=== PATIENT | male | born 1970 | race Caucasian/White ===

== ENCOUNTER 2021-10-29 14:31 | Outpatient (CLI) | payer OTHER ==
[~2021-10-29 14:31] MED LIST: Magnevist 469MG/ML 20 ML VIAL ONE
== END 2021-10-29 14:32 | disposition home or self-care (01) ==
LOC: CSHMRI 14:31
PROVIDERS: ATTEND Family Medicine
DX: G93.9 Disorder of brain, unspecified (principal); G44.52 New daily persistent headache (NDPH); G93.6 Cerebral edema
CPT/HCPCS: 70553; A9579

== ENCOUNTER 2021-11-06 07:09 | Outpatient (CLI) | payer OTHER ==
[2021-11-06] MEDS ORDERED: Iopamidol 370 76% 100 ML VIAL ONE (12:27)
== END 2021-11-06 07:10 | disposition home or self-care (01) ==
LOC: CSHCT 07:09
PROVIDERS: ATTEND Family Medicine
DX: D32.9 Benign neoplasm of meninges, unspecified (principal); D32.0 Benign neoplasm of cerebral meninges
CPT/HCPCS: 70496

== ENCOUNTER 2021-11-06 14:23 | Emergency (ER) | payer OTHER ==
[2021-11-06] MEDS ORDERED: diphenhydrAMINE 50 MG/ML VIAL ONE (14:55)
[2021-11-06] MEDS ORDERED: Metoclopramide HCl 10 MG/2 ML VIAL ONE (14:55)
[2021-11-06 15:10] LABS: #Eosinphils 0.1 10x3/uL (0.0-0.5); #Monocytes 0.9 10x3/uL (0.0-1.1); #Neutrophils 8.7 10x3/uL (1.5-8.4); %Basophils 0.3 % (0.0-2.0); %Lymphocytes 14.7 % (18.0-47.0); %Monocytes 7.7 % (0.0-10.0); %Neutrophils 75.8 % (40.0-75.0); Hemoglobin 14.3 g/dL (13.5-17.5); Mean Corpuscular HGB CONC 36.5 g/dL (32.0-36.0); Mean Corpuscular Volume 90.5 fl (81.2-95.1); Mean Platelet Volume 8.4 fl (7.4-10.4); Platelet Count 296 10x3/uL (150-450); RBC Distribution Width 11.9 % (11.5-14.5); Red Blood Cell (RBC) Count 4.33 10x6/uL (4.32-5.72); White Blood Cell (WBC) Count 11.5 10x3/uL (3.5-10.5)
[2021-11-06 15:26] LABS: ALT (SGPT) 23 U/L (8-55); AST (SGOT) 15 U/L (5-34); Alkaline Phosphatase 66 U/L (40-110); Anion Gap 14 mmol/L (10-20); BUN (Urea Nitrogen) 18 mg/dL (8.4-25.7); Bilirubin, Total 0.3 mg/dL (0.2-1.2); Calc. Creatinine Clearance 0 mL/min (70-130); Calcium 9.2 mg/dL (7.8-10.44); Carbon Dioxide 26 mmol/L (22-29); Chloride 107 mmol/L (98-107); Estimated GFR 65; Globulin 2.6 g/dL (2.4-3.5); Glucose 129 mg/dL (70-105); Potassium 4.1 mmol/L (3.5-5.1); Protein, Total 6.6 g/dL (6.0-8.3); Sodium 143 mmol/L (136-145)
[2021-11-06] MEDS ORDERED: Colchicine 0.6 MG TAB ONE (16:14)
[2021-11-06] MEDS ORDERED: Morphine 4 MG/ML VIAL ONE (16:15)
== END 2021-11-06 16:30 | disposition home or self-care (01) ==
LOC: CSHERS 14:23
DX: M79.674 Pain in right toe(s) (principal); R51.9 Headache, unspecified; I10 Essential (primary) hypertension; F17.290 Nicotine dependence, other tobacco product, uncomplicated
CPT/HCPCS: 80053; 85025; 94760; 96374; 96375; J1200; J2270; J2765

== ENCOUNTER 2021-11-17 07:37 | Emergency (ER) | payer OTHER ==
[2021-11-17] MEDS ORDERED: Metoclopramide HCl 10 MG/2 ML VIAL ONE (08:12)
[2021-11-17] MEDS ORDERED: diphenhydrAMINE 50 MG/ML VIAL ONE (08:12)
[2021-11-17] MEDS ORDERED: Ketorolac Tromethamine 30 MG/ML VIAL ONE (08:13)
== END 2021-11-17 10:00 | disposition home or self-care (01) ==
LOC: CSHERS 07:37
DX: R51.9 Headache, unspecified (principal); F17.290 Nicotine dependence, other tobacco product, uncomplicated; I10 Essential (primary) hypertension
CPT/HCPCS: 96361; 96365; 96375; J1200; J1885; J2765

== ENCOUNTER 2024-05-10 14:18 | Observation (INO) | payer OTHER, SELFPAY ==
[~2024-05-10 14:18] MED LIST changes: +Iopamidol 300 61% 100 ML VIAL FS ONE; -Magnevist 469MG/ML 20 ML VIAL ONE
[2024-05-10 15:14] LABS: #Basophils 0.04 10x3/uL (0.0-0.2); #Eosinophils Less than 0.03 10x3/uL (0.0-0.5); #Monocytes 1.49 10x3/uL (0.0-1.1); #Neutrophils 13.21 10x3/uL (1.5-8.4); %Basophils 0.3 % (0.0-2.0); %Lymphocytes 5.3 % (18.0-47.0); %Monocytes 9.5 % (0.0-10.0); %Neutrophils 84.3 % (40.0-75.0); Hematocrit 38.6 % (38.8-50.0); Hemoglobin 13.5 g/dL (13.5-17.5); Mean Corpuscular Hemoglobin 31.7 pg (27.0-33.0); Mean Corpuscular Volume 90.6 fL (81.2-95.1); Mean Platelet Volume 8.6 fL (7.4-10.4); Platelet Count 242 10x3/uL (150-450); RBC Distribution Width 12.5 % (11.5-14.5); Red Blood Cell (RBC) Count 4.26 10x6/uL (4.32-5.72); White Blood Cell (WBC) Count 15.67 10x3/uL (3.5-10.5)
[2024-05-10] MEDS ORDERED: Ketorolac Tromethamine 30 MG (1 mL) VIAL ONE (15:24)
[2024-05-10 15:37] LABS: ALT (SGPT) 10 U/L (Less than 45); AST (SGOT) 15 U/L (11-34); Albumin 3.6 g/dL (3.1-4.5); Alkaline Phosphatase 56 U/L (40-110); Anion Gap 13 mmol/L (10-20); BUN (Urea Nitrogen) 11 mg/dL (8.4-25.7); Calc. Creatinine Clearance 0 mL/min (70-130); Calcium 9.2 mg/dL (7.8-10.44); Carbon Dioxide 24 mmol/L (22-29); Chloride 99 mmol/L (98-107); Estimated GFR 76; Globulin 3.2 g/dL (2.4-3.5); Glucose 129 mg/dL (70-105); Lipase 12 U/L (8-78); Magnesium 1.6 mg/dL (1.6-2.6); Potassium 3.8 mmol/L (3.5-5.1); Protein, Total 6.8 g/dL (6.0-8.3); Sodium 132 mmol/L (136-145)
[2024-05-10] MEDS ORDERED: Piperacillin/Tazobactam 4.5 GM VIAL ONE (16:29)
[2024-05-10 17:03] LABS: Bilirubin Neg (Negative); Blood, Urine Negative (Negative); Clarity Clear (Clear); Glucose, Urine (Dipstick) Normal (Negative); Ketone, Urine 15 mg/dL (Negative); Leukocyte Negative (Negative); Nitrite Negative (Negative); Protein, Urine (Dipstick) Negative (Neg-Trace); Urobilinogen Normal mg/dL (Less than 2)
[2024-05-10] MEDS ORDERED: hydrALAZINE 20 MG/ML VIAL SLOW IVP PRN (17:20)
[2024-05-10] MEDS ORDERED: Ondansetron PF 4 MG/2 ML Vial IVP PRN (17:20)
[2024-05-10] MEDS ORDERED: Morphine 4 MG/ML VIAL SLOW IVP PRN (17:20)
[2024-05-10] MEDS ORDERED: Morphine 2 MG/ML VIAL SLOW IVP PRN (17:20)
[2024-05-10] MEDS ORDERED: Promethazine HCl 25 MG/ML VIAL IM PRN (17:20)
[2024-05-10] MEDS ORDERED: Ipratropium/Albuterol 3 ML NEB NEB PRN (17:20)
[2024-05-10 18:10] LABS: Bacteria/HPF None Seen HPF (None Seen); CAUTI Indications for Culture Pelvic or flank pain; RBC/HPF None Seen HPF (0-3); Squamous Epithelial None Seen HPF (0-3); Urine Culture Reflex No No; WBC/HPF None Seen HPF (0-3)
[2024-05-10] MEDS ORDERED: Morphine 4 MG/ML VIAL ONE (20:46)
[2024-05-10] MEDS: Lactated Ringer's 1,000 ML IV SCH (22:42)
[2024-05-10] MEDS: Famotidine/PF 20 mg/2ml Vial SLOW IVP SCH (22:43)
[2024-05-10] MEDS: Enoxaparin 40 MG (0.4 mL) SYRINGE SC SCH (22:43)
[2024-05-10 22:53] VITALS: BMI 32.3
[2024-05-10] MEDS: Ketorolac Tromethamine 30 MG (1 mL) VIAL IVP SCH (23:18)
[2024-05-11] MEDS ORDERED: Piperacillin/Tazobactam 4.5 GM in Sodium Chloride 0.9% 100 ML IVPB SCH (00:30)
[2024-05-11] MEDS: Piperacillin/Tazobactam 3.375 GM in Sodium Chloride 0.9% 100 ML IVPB SCH (00:32)
[2024-05-11 03:51] LABS: #Basophils Less than 0.03 10x3/uL (0.0-0.2); #Eosinophils 0.12 10x3/uL (0.0-0.5); #Monocytes 1.35 10x3/uL (0.0-1.1); #Neutrophils 7.82 10x3/uL (1.5-8.4); %Basophils 0.2 % (0.0-2.0); %Eosinophils 1.1 % (0.0-6.0); %Lymphocytes 11.4 % (18.0-47.0); %Monocytes 12.8 % (0.0-10.0); %Neutrophils 74.1 % (40.0-75.0); Hematocrit 33.3 % (38.8-50.0); Hemoglobin 12.1 g/dL (13.5-17.5); Mean Corpuscular HGB CONC 36.3 g/dL (32.0-36.0); Mean Corpuscular Hemoglobin 33.3 pg (27.0-33.0); Mean Corpuscular Volume 91.7 fL (81.2-95.1); Mean Platelet Volume 8.7 fL (7.4-10.4); Platelet Count 185 10x3/uL (150-450); RBC Distribution Width 12.8 % (11.5-14.5); Red Blood Cell (RBC) Count 3.63 10x6/uL (4.32-5.72); White Blood Cell (WBC) Count 10.55 10x3/uL (3.5-10.5)
[2024-05-11 04:06] LABS: Anion Gap 11 mmol/L (10-20); BUN (Urea Nitrogen) 14 mg/dL (8.4-25.7); Calc. Creatinine Clearance 107 mL/min (70-130); Calcium 8.3 mg/dL (7.8-10.44); Carbon Dioxide 25 mmol/L (22-29); Chloride 99 mmol/L (98-107); Estimated GFR 67; Glucose 133 mg/dL (70-105); Potassium 3.2 mmol/L (3.5-5.1); Sodium 132 mmol/L (136-145)
[2024-05-11 08:39] VITALS: BP 115/69; TEMP 98.3
[2024-05-11] MEDS: Tamsulosin HCl 0.4 MG CAP PO SCH (09:13)
[2024-05-11] MEDS: Lisinopril 20 MG TAB PO SCH (09:13)
[2024-05-11] MEDS: Allopurinol 100 MG TAB PO SCH (09:13)
[2024-05-11] MEDS: Hydrochlorothiazide 25 MG TAB PO SCH (09:13)
[2024-05-11] MEDS: Amlodipine 5 MG TAB PO SCH (09:13)
== END 2024-05-11 09:29 | disposition home or self-care (01) ==
LOC: CSHERS 14:18 → CSHTELE 16:02
PROVIDERS: ADMIT Surgery; ATTEND Surgery
DX: K36 Other appendicitis (principal); I10 Essential (primary) hypertension; M10.9 Gout, unspecified; M19.90 Unspecified osteoarthritis, unspecified site; F32.A Depression, unspecified; N40.0 Benign prostatic hyperplasia without lower urinary tract symptoms; Z98.890 Other specified postprocedural states; Z79.899 Other long term (current) drug therapy
CPT/HCPCS: 36415; 74177; 80048; 80053; 81001; 83690; 83735; 85025; 96365; 96366; 96372; 96375; 96376; G0378; J1650; J1885; J2270; J2543; J3490; J7120; Q9967

== ENCOUNTER 2025-01-28 07:17 | Emergency (ER) | payer OTHER ==
[2025-01-28] MEDS ORDERED: Ondansetron PF 4 MG/2 ML Vial ONE (07:40)
[2025-01-28 08:09] LABS: ALT (SGPT) 18 U/L (Less than 45); AST (SGOT) 31 U/L (11-34); Albumin 3.3 g/dL (3.1-4.5); Alkaline Phosphatase 60 U/L (40-110); Anion Gap 17 mmol/L (10-20); BUN (Urea Nitrogen) 17 mg/dL (8.4-25.7); Bilirubin, Total 1.2 mg/dL (0.3-1.2); Calc. Creatinine Clearance 0 mL/min (70-130); Calcium 8.5 mg/dL (7.8-10.44); Carbon Dioxide 21 mmol/L (22-29); Chloride 95 mmol/L (98-107); Globulin 2.6 g/dL (2.4-3.5); Glucose 116 mg/dL (70-105); Lipase 58 U/L (8-78); Magnesium 1.7 mg/dL (1.6-2.6); Potassium 4.0 mmol/L (3.5-5.1); Sodium 129 mmol/L (136-145)
[2025-01-28 08:15] LABS: Troponin I Less than 0.010 ng/mL (< 0.028)
[2025-01-28 08:23] LABS: Hematocrit 35.0 % (38.8-50.0); Hemoglobin 13.4 g/dL (13.5-17.5); Mean Corpuscular Hemoglobin 37.2 pg (27.0-33.0); Mean Corpuscular Volume 97.2 fL (81.2-95.1); Platelet Count 177 10x3/uL (150-450); Red Blood Cell (RBC) Count 3.60 10x6/uL (4.32-5.72); White Blood Cell (WBC) Count 5.11 10x3/uL (3.5-10.5)
[2025-01-28 08:24] LABS: #Basophils Less than 0.03 10x3/uL (0.0-0.2); #Eosinophils 0.03 10x3/uL (0.0-0.5); #Monocytes 0.46 10x3/uL (0.0-1.1); #Neutrophils 3.13 10x3/uL (1.5-8.4); %Basophils 0.4 % (0.0-2.0); %Eosinophils 0.6 % (0.0-6.0); %Lymphocytes 27.8 % (18.0-47.0); %Monocytes 9.0 % (0.0-10.0); %Neutrophils 61.2 % (40.0-75.0); INR-International Normal Ratio 1.0; PTT 26.9 sec (22.0-33.0); Prothrombin Time 10.8 sec (9.5-12.1)
== END 2025-01-28 10:40 | disposition home or self-care (01) ==
LOC: CSHERS 07:17
DX: E86.0 Dehydration (principal); E87.1 Hypo-osmolality and hyponatremia; R29.700 NIHSS score 0; I10 Essential (primary) hypertension; F17.290 Nicotine dependence, other tobacco product, uncomplicated; Z79.899 Other long term (current) drug therapy
CPT/HCPCS: 36415; 70450; 71045; 72125; 76705; 80053; 83605; 83690; 83735; 83880; 84484; 85025; 85610; 85730; 87428; 93005; 94640; 96361; 96374; 96375; J2919

== ENCOUNTER 2025-02-09 16:46 | Emergency (ER) | payer OTHER ==
[2025-02-09 20:23] LABS: ALT (SGPT) 20 U/L (Less than 45); AST (SGOT) 25 U/L (11-34); Albumin 3.8 g/dL (3.1-4.5); Alkaline Phosphatase 72 U/L (40-110); Anion Gap 15 mmol/L (10-20); BUN (Urea Nitrogen) 8 mg/dL (8.4-25.7); Bilirubin, Total 0.4 mg/dL (0.3-1.2); Calc. Creatinine Clearance 0 mL/min (70-130); Calcium 9.1 mg/dL (7.8-10.44); Carbon Dioxide 22 mmol/L (22-29); Chloride 100 mmol/L (98-107); Globulin 2.6 g/dL (2.4-3.5); Glucose 117 mg/dL (70-105); Potassium 4.0 mmol/L (3.5-5.1); Sodium 133 mmol/L (136-145)
[2025-02-09 20:25] LABS: #Basophils Less than 0.03 10x3/uL (0.0-0.2); #Eosinophils Less than 0.03 10x3/uL (0.0-0.5); #Monocytes 0.49 10x3/uL (0.0-1.1); #Neutrophils 5.55 10x3/uL (1.5-8.4); %Basophils 0.3 % (0.0-2.0); %Eosinophils 0.1 % (0.0-6.0); %Lymphocytes 14.0 % (18.0-47.0); %Monocytes 6.9 % (0.0-10.0); %Neutrophils 77.7 % (40.0-75.0); Hematocrit 34.1 % (38.8-50.0); Hemoglobin 13.2 g/dL (13.5-17.5); Mean Corpuscular Hemoglobin 37.8 pg (27.0-33.0); Mean Corpuscular Volume 97.7 fL (81.2-95.1); Platelet Count 188 10x3/uL (150-450); Red Blood Cell (RBC) Count 3.49 10x6/uL (4.32-5.72); White Blood Cell (WBC) Count 7.14 10x3/uL (3.5-10.5)
[2025-02-09 20:49] LABS: Glucose, Urine (Dipstick) Normal (Negative); Leukocyte Negative (Negative); Protein, Urine (Dipstick) 15 mg/dl (Neg-Trace); Specific Gravity, Urine 1.020 (1.005-1.030)
[2025-02-09 20:59] LABS: Bacteria/HPF Rare-Few HPF (None Seen); CAUTI Indications for Culture Alt mental st,lethar; RBC/HPF None Seen HPF (0-3); WBC/HPF 0-3 HPF (0-3)
[2025-02-09 21:01] LABS: Urine Culture Reflex No No
== END 2025-02-09 20:55 | disposition home or self-care (01) ==
LOC: CSHERS 16:46
DX: R41.82 Altered mental status, unspecified (principal); I10 Essential (primary) hypertension; F17.290 Nicotine dependence, other tobacco product, uncomplicated
CPT/HCPCS: 36415; 70450; 80053; 81001; 84146; 85025; 93005; 96360

== ENCOUNTER 2025-02-15 08:48 | Outpatient (CLI) | payer OTHER ==
[2025-02-15] MEDS ORDERED: Iopamidol 300 61% 100 ML VIAL FS ONE (14:13)
== END 2025-02-15 08:49 | disposition home or self-care (01) ==
LOC: CSHCT 08:48
PROVIDERS: ATTEND Internal Medicine
DX: C18.9 Malignant neoplasm of colon, unspecified (principal); R91.1 Solitary pulmonary nodule
CPT/HCPCS: 71260; 74177; Q9967